=== PATIENT | female | born 1980 | race Caucasian/White ===

== ENCOUNTER 2018-01-29 12:00 | Emergency (ER) | payer SELFPAY ==
[~2018-01-29] VITALS: Ht 160 cm; Wt 63.0 kg
[2018-01-29] MEDS ORDERED: IBUPROFEN 600MG TABLET PO ONE (16:00)
[2018-01-29] MEDS ORDERED: ONDANSETRON 4MG ODT PO ONE (16:00)
[2018-01-29 16:44] VITALS: BP 113/69
== END 2018-01-29 16:43 | disposition home or self-care (01) ==
LOC: ER 13:19
DX: S09.90XA Unspecified injury of head, initial encounter (principal); W19.XXXA Unspecified fall, initial encounter; Y93.89 Activity, other specified; Y92.89 Other specified places as the place of occurrence of the external cause; Y99.8 Other external cause status
CPT/HCPCS: 70450; 72125; 81025; 99284